=== PATIENT | female | born 1950 | race Caucasian/White ===

== ENCOUNTER 2017-09-18 12:27 | Inpatient (IN) ==
--- NOTE | 2017-09-18 12:40 | Emergency Department Note ---
Disposition Clinical Impression: Chest pain, NSTEMI (non-ST elevated myocardial infarction) Disposition: Admitted As Inpatient Condition: Fair Referrals: NONE,PCP [Primary Care Provider] - Bina Song [Family Provider] - Forms: ED Satisfaction Letter Time of Disposition: 13:35 Chest Pain HPI - General Chief Complaint: ED Chest Pain Time Seen by Provider: 09/18/17 12:34 Source: patient, EMS Mode of arrival: EMS Limitations: no limitations Vital Signs Reviewed: Yes Nursing Notes Reviewed: Yes - History of Present Illness HPI Narrative: Patient presents to the ED via EMS and was seen and evaluated upon arrival, returning with the chief complaint of chest pain. Chest pain workup this morning at 5 AM, midsternal, radiating through to her back and down her left arm. States it felt like her chest was caving in. She became nauseated, diaphoretic and had one episode of vomiting. Went to urgent care and was told to come here. States that her pain has been completely gone after full dose aspirin and nitroglycerin. Reports no previous history of coronary artery disease, but states she has not seen a physician in 40 years. She has no other known medical problems. No pain or swelling in her legs. No history of PE, DVT or malignancy. She states she just feels tired now. No fever, chills, abdominal pain, diarrhea, pain or swelling in her legs or rash. - Related Data Home Medications Medication Instructions Recorded Confirmed Calcium Carbonate [Calcium] 500 mg PO DAILY 09/18/17 09/18/17 DiphenhydraMINE [Benadryl] 25 mg PO Q6HR PRN 09/18/17 09/18/17 [place]-3/Dha/Epa/Fish Oil [Fish Oil 1 tab PO DAILY 09/18/17 09/18/17 1,000 mg Softgel] Ranitidine HCl [Zantac 75] 75 mg PO DAILY 09/18/17 09/18/17 Allergies Allergy/AdvReac Type Severity Reaction Status Date / Time No Known Allergies Allergy Verified 09/18/17 13:21 Review of Systems: As reviewed in the HPI. All other systems reviewed are negative or normal. Chest Pain PMH - Social History Smoking Status: Current every day smoker Alcohol use: Reports: none Physical Exam - General Limitations: no limitations General appearance: alert, in no apparent distress - Chest Chest inspection: Present: normal inspection, symmetric chest wall rise - Respiratory Respiratory exam: Present: normal lung sounds bilaterally - Cardiovascular Cardiovascular exam: Present: regular rate, normal rhythm, normal heart sounds - Abdominal Exam Abdominal exam: Present: soft, Non-Tender. Absent: tenderness, distention, guarding, rebound, rigidity - Extremities Exam Extremities exam: Present: normal inspection, full ROM. Absent: tenderness, pedal edema Course Course Narrative: Patient presenting with chest pain. Certainly concerning for heart pathology. We will get labs, EKG, chest x-ray and admit. - Consultations Consultation #1: Spoke with the meter setter, Dr. Alicia. States that he will come down and evaluate the patient. She does not meet STEMI criteria. This time that we do feel that she will need heart catheterization in the near future , based on her story. Time: 12:53 Consultation #2: patient with elevated troponin and is going to optical laboratory technician for suspected impending inferior [place]. Time: 14:04 Vital Signs Temperature 97.9 F 09/18/17 12:50 Pulse Rate 91 09/18/17 12:50 Respiratory Rate 18 09/18/17 12:50 Blood Pressure 141/67 09/18/17 12:50 O2 Sat by Pulse Oximetry 97 09/18/17 12:50 Temperature 97.9 F 09/18/17 12:50 Pulse Rate 74 09/18/17 13:00 Respiratory Rate 20 09/18/17 13:00 Blood Pressure 141/78 09/18/17 13:00 O2 Sat by Pulse Oximetry 99 09/18/17 13:03 Oxygen Delivery Oxygen Delivery Room Air Chest Pain - Medical Records Medical records reviewed: Yes I reviewed the patient's medical records. - Lab Data Lab results reviewed: Yes I reviewed the patient's lab results. Result diagrams: 09/18/17 13:11 09/18/17 13:11 Lab Results 09/18/17 09/18/17 09/18/17 Range/Units 12:57 13:11 13:11 WBC 11.3 H (4.3-11.1) K/mcL RBC 4.73 (3.82-4.97) M/mcL Hgb 13.1 (11.5-15.4) g/dL Hct 39.7 (35.3-44.9) % MCV 83.9 (83.0-100.0) fL MCH 27.7 L (28.0-33.3) pg MCHC 33.0 (31.6-35.5) g/dL RDW 13.0 (11.5-14.5) % Plt Count 245 (140-400) K/mcL MPV 9.7 (9.4-12.4) fL Immature Gran % 0.4 (0-4) % Seg Neutrophils % 87.2 % Lymphocytes % 10.3 % Monocytes % 2.0 % Eosinophils % 0.0 % Basophils % 0.1 % Neutrophils # 9.8 H (1.6-8.9) K/mcL Lymphocytes # 1.2 (0.6-4.6) K/mcL Monocytes # 0.2 (0.0-1.3) K/mcL Eosinophils # 0.0 (0.0-0.6) K/mcL Basophils # 0.0 (0.0-0.2) K/mcL PT (9.4-12.1) Seconds INR APTT (26.0-36.0) Seconds Sodium 139 (136-145) mEq/L Potassium 4.1 (3.5-5.1) mEq/L Chloride 110 H (98-107) mEq/L Carbon Dioxide 22 L (23-29) mEq/L BUN 14 (8-23) mg/dL Creatinine 0.58 L (0.60-1.20) mg/dL Est GFR ( Amer) > 60 (> 60) Est GFR (Non-Af Amer) > 60 (> 60) BUN/Creatinine Ratio 24 (6-26) Glucose 221 H (70-105) mg/dL Calculated Osmolality 295 (280-300) Calcium 9.3 (8.6-10.3) mg/dL Troponin I 7.75 H* (< 0.04) ng/mL Urine Color Yellow (Yellow) Urine Clarity Clear (Clear) Urine pH 6.0 (5.0-8.0) pH Units Ur Specific [place] > 1.030 H (1.010-1.025) Urine Protein Negative (Neg-Trace) mg/dL Urine Glucose (UA) >=1000 H (Normal) mg/dL Urine Ketones 15 H (Negative) mg/dL Urine Blood Negative (Negative) Urine Nitrite Negative (Negative) Urine Bilirubin Negative (Negative) Urine Urobilinogen Normal (Normal) mg/dL Ur Leukocyte Esterase Negative (Negative) Ur Culture Indicated? NO (NO) 09/18/17 Range/Units 13:11 WBC (4.3-11.1) K/mcL RBC (3.82-4.97) M/mcL Hgb (11.5-15.4) g/dL Hct (35.3-44.9) % MCV (83.0-100.0) fL MCH (28.0-33.3) pg MCHC (31.6-35.5) g/dL RDW (11.5-14.5) % Plt Count (140-400) K/mcL MPV (9.4-12.4) fL Immature Gran % (0-4) % Seg Neutrophils % % Lymphocytes % % Monocytes % % Eosinophils % % Basophils % % Neutrophils # (1.6-8.9) K/mcL Lymphocytes # (0.6-4.6) K/mcL Monocytes # (0.0-1.3) K/mcL Eosinophils # (0.0-0.6) K/mcL Basophils # (0.0-0.2) K/mcL PT 11.2 (9.4-12.1) Seconds INR 1.0 APTT 28.0 (26.0-36.0) Seconds Sodium (136-145) mEq/L Potassium (3.5-5.1) mEq/L Chloride (98-107) mEq/L Carbon Dioxide (23-29) mEq/L BUN (8-23) mg/dL Creatinine (0.60-1.20) mg/dL Est GFR ( Amer) (> 60) Est GFR (Non-Af Amer) (> 60) BUN/Creatinine Ratio (6-26) Glucose (70-105) mg/dL Calculated Osmolality (280-300) Calcium (8.6-10.3) mg/dL Troponin I (< 0.04) ng/mL Urine Color (Yellow) Urine Clarity (Clear) Urine pH (5.0-8.0) pH Units Ur Specific [place] (1.010-1.025) Urine Protein (Neg-Trace) mg/dL Urine Glucose (UA) (Normal) mg/dL Urine Ketones (Negative) mg/dL Urine Blood (Negative) Urine Nitrite (Negative) Urine Bilirubin (Negative) Urine Urobilinogen (Normal) mg/dL Ur Leukocyte Esterase (Negative) Ur Culture Indicated? (NO) - Radiology Data Radiology results reviewed: Yes I reviewed the patient's radiology results. - EKG Data EKG attestation: Yes I reviewed and interpreted this EKG. EKG results narrative: EKG shows sinus rhythm with occasional PVC, rate 91, OH interval 122, QRS 93, QTC 414, normal axis, ST T wave changes inferiorly that are non-diagnostic, but concerning for inferior ischemia. Will repeat EKG if pain changes. Heart Score - Score History: Highly Suspicious EKG: Non Specific repolarisation Disturbance Age: Greater than 65 Risk Factors: No risk factors known Troponin: Less than normal limit HEART Score Total: 5
[2017-09-18 13:09] LABS: Bilirubin,Urine Negative (Negative); Blood,Urine Negative (Negative); Clarity,Urine Clear (Clear); Color,Urine Yellow (Yellow); Glucose,Urine (UA) >=1000 mg/dL (Normal); Ketones,Urine 15 mg/dL (Negative); Leukocyte Esterase,Urine Negative (Negative); Nitrite,Urine Negative (Negative); Protein,Urine Negative (Neg-Trace); Specific Gravity,Urine > 1.030 (1.010-1.025); Urobilinogen,Urine Normal (Normal)
--- NOTE | 2017-09-18 13:09 | Emergency Department Note ---
Disposition Clinical Impression: NSTEMI (non-ST elevated myocardial infarction) Chest pain Qualifiers: Chest pain type: precordial pain Qualified Code(s): R07.2 - Precordial pain Disposition: Admitted As Inpatient Condition: Fair General Adult HPI - General Chief complaint: ED Chest Pain Stated complaint: chest pain/NV/diaphoresis Time Seen by Provider: 09/18/17 12:34 Source: patient, EMS Mode of arrival: EMS Limitations: no limitations - History of Present Illness HPI Narrative: 67-year-old female presents the ED because of chest pain. She will 5 AM today with sudden onset of substernal chest pain radiating into her back with heaviness in both arms. This was followed by period of diaphoresis and generalized weakness and vomiting. She subsequently presented to urgent care and was sent here for further evaluation due to some subtle EKG changes. Denies any recent exertional provocation of symptoms. No prior history of the same pain. Denies any past medical history. Family history positive for coronary disease in her father had his first event was when he was in his 70s. Onset (ago): hour(s) (6 hours ago) Pain Severity: moderate Pain Scale: 0 Consistency: Improving Improves with: nothing Worsens with: nothing Treatments Prior to Arrival: Aspirin, other (nitroglycerin) - Related Data Home Medications Medication Instructions Recorded Confirmed Calcium Carbonate [Calcium] 500 mg PO DAILY 09/18/17 09/18/17 DiphenhydraMINE [Benadryl] 25 mg PO Q6HR PRN 09/18/17 09/18/17 [place]-3/Dha/Epa/Fish Oil [Fish Oil 1 tab PO DAILY 09/18/17 09/18/17 1,000 mg Softgel] Ranitidine HCl [Zantac 75] 75 mg PO DAILY 09/18/17 09/18/17 Allergies Allergy/AdvReac Type Severity Reaction Status Date / Time No Known Allergies Allergy Verified 09/18/17 13:21 Constitutional: Reports: weakness. Denies: fever, chills Respiratory: Reports: dyspnea Gastrointestinal: Reports: nausea, vomiting. Denies: abdominal pain Past Medical History - Past Medical History Attestation: Yes The following information was validated with the patient. Medical history: Reports: no medical history Psychiatric history: Reports: no psych history - Social History Smoking Status: Current every day smoker Smokeless Tobacco Status: No Alcohol use: Reports: none Drug use: Reports: none Physical Exam - General Limitations: no limitations General appearance: alert, in no apparent distress - Head Head exam: atraumatic - Eye Eye exam: Present: normal appearance - ENT ENT exam: normal exam, normal oropharynx - Neck Neck exam: Absent: normal inspection, trachea midline - Chest Chest inspection: Present: normal inspection - Respiratory Respiratory exam: Present: normal lung sounds bilaterally. Absent: respiratory distress - Cardiovascular Cardiovascular exam: Present: normal rhythm - Abdominal Exam Abdominal exam: Present: Non-Tender, tenderness - Expanded Lower Extremity Exam Lower leg exam: Absent: tenderness, swelling Neurovascular/Tendon exam: Present: normal capillary refill - Back Exam Back exam: Present: normal inspection. Absent: CVA tenderness (R), CVA tenderness (L) - Neurological Exam Neurological exam: Present: alert, oriented X3 - Psychiatric Psychiatric exam: Present: normal affect - Skin Skin exam: Present: warm, dry Course Course Narrative: Patient's clinical picture is very suspicious for acute coronary syndrome. EKGs are also borderline without criteria for ST elevation [place] but suspect for evolving infarct. Concern is mostly over her inferior wall with stuttering changes involving the inferior leads as well as reciprocal changes in leads 1 and aVL. We have discussed with Dr. Alicia who is in the ED seeing the patient and will take her to the [facility] Attendant once available. The high probability of a clinically significant, sudden or life threatening deterioration of the [cardiovascular] system(s) required my full and direct attention, intervention and personal management. The aggregate critical care time was [32] minutes. This time is in addition to time spent performing reported procedures but includes the following: [x] Data Review and interpretation [x] Patient assessment and monitoring of vital signs [x] Documentation [x] Medication orders and management Vital Signs Temperature 97.9 F 09/18/17 12:50 Pulse Rate 91 09/18/17 12:50 Respiratory Rate 18 09/18/17 12:50 Blood Pressure 141/67 09/18/17 12:50 O2 Sat by Pulse Oximetry 97 09/18/17 12:50 Temperature 98.1 F 09/18/17 19:04 Pulse Rate 96 09/18/17 19:04 Respiratory Rate 20 09/18/17 19:04 Blood Pressure 138/72 09/18/17 19:04 O2 Sat by Pulse Oximetry 97 09/18/17 19:04 Oxygen Delivery Oxygen Delivery Room Air Medical Decision Making - Lab Data Result diagrams: 09/18/17 13:11 09/18/17 13:11 Lab Results 09/18/17 09/18/17 09/18/17 Range/Units 12:57 13:11 13:11 WBC 11.3 H (4.3-11.1) K/mcL RBC 4.73 (3.82-4.97) M/mcL Hgb 13.1 (11.5-15.4) g/dL Hct 39.7 (35.3-44.9) % MCV 83.9 (83.0-100.0) fL MCH 27.7 L (28.0-33.3) pg MCHC 33.0 (31.6-35.5) g/dL RDW 13.0 (11.5-14.5) % Plt Count 245 (140-400) K/mcL MPV 9.7 (9.4-12.4) fL Immature Gran % 0.4 (0-4) % Seg Neutrophils % 87.2 % Lymphocytes % 10.3 % Monocytes % 2.0 % Eosinophils % 0.0 % Basophils % 0.1 % Neutrophils # 9.8 H (1.6-8.9) K/mcL Lymphocytes # 1.2 (0.6-4.6) K/mcL Monocytes # 0.2 (0.0-1.3) K/mcL Eosinophils # 0.0 (0.0-0.6) K/mcL Basophils # 0.0 (0.0-0.2) K/mcL PT (9.4-12.1) Seconds INR APTT (26.0-36.0) Seconds Sodium 139 (136-145) mEq/L Potassium 4.1 (3.5-5.1) mEq/L Chloride 110 H (98-107) mEq/L Carbon Dioxide 22 L (23-29) mEq/L BUN 14 (8-23) mg/dL Creatinine 0.58 L (0.60-1.20) mg/dL Est GFR ( Amer) > 60 (> 60) Est GFR (Non-Af Amer) > 60 (> 60) BUN/Creatinine Ratio 24 (6-26) Glucose 221 H (70-105) mg/dL Calculated Osmolality 295 (280-300) Calcium 9.3 (8.6-10.3) mg/dL Magnesium 1.9 (1.6-2.6) mg/dL Troponin I 7.75 H* (< 0.04) ng/mL Urine Color Yellow (Yellow) Urine Clarity Clear (Clear) Urine pH 6.0 (5.0-8.0) pH Units Ur Specific [place] > 1.030 H (1.010-1.025) Urine Protein Negative (Neg-Trace) mg/dL Urine Glucose (UA) >=1000 H (Normal) mg/dL Urine Ketones 15 H (Negative) mg/dL Urine Blood Negative (Negative) Urine Nitrite Negative (Negative) Urine Bilirubin Negative (Negative) Urine Urobilinogen Normal (Normal) mg/dL Ur Leukocyte Esterase Negative (Negative) Ur Culture Indicated? NO (NO) 09/18/17 Range/Units 13:11 WBC (4.3-11.1) K/mcL RBC (3.82-4.97) M/mcL Hgb (11.5-15.4) g/dL Hct (35.3-44.9) % MCV (83.0-100.0) fL MCH (28.0-33.3) pg MCHC (31.6-35.5) g/dL RDW (11.5-14.5) % Plt Count (140-400) K/mcL MPV (9.4-12.4) fL Immature Gran % (0-4) % Seg Neutrophils % % Lymphocytes % % Monocytes % % Eosinophils % % Basophils % % Neutrophils # (1.6-8.9) K/mcL Lymphocytes # (0.6-4.6) K/mcL Monocytes # (0.0-1.3) K/mcL Eosinophils # (0.0-0.6) K/mcL Basophils # (0.0-0.2) K/mcL PT 11.2 (9.4-12.1) Seconds INR 1.0 APTT 28.0 (26.0-36.0) Seconds Sodium (136-145) mEq/L Potassium (3.5-5.1) mEq/L Chloride (98-107) mEq/L Carbon Dioxide (23-29) mEq/L BUN (8-23) mg/dL Creatinine (0.60-1.20) mg/dL Est GFR ( Amer) (> 60) Est GFR (Non-Af Amer) (> 60) BUN/Creatinine Ratio (6-26) Glucose (70-105) mg/dL Calculated Osmolality (280-300) Calcium (8.6-10.3) mg/dL Magnesium (1.6-2.6) mg/dL Troponin I (< 0.04) ng/mL Urine Color (Yellow) Urine Clarity (Clear) Urine pH (5.0-8.0) pH Units Ur Specific [place] (1.010-1.025) Urine Protein (Neg-Trace) mg/dL Urine Glucose (UA) (Normal) mg/dL Urine Ketones (Negative) mg/dL Urine Blood (Negative) Urine Nitrite (Negative) Urine Bilirubin (Negative) Urine Urobilinogen (Normal) mg/dL Ur Leukocyte Esterase (Negative) Ur Culture Indicated? (NO) - EKG Data EKG #1 EKG attestation: Yes I reviewed and interpreted this EKG. EKG results narrative: Sinus rhythm with a rate of 91 and occasional PVCs. Electrical indices within normal limits. [place] is normal. There are very subtle changes involving the inferior wall with less than a millimeter of elevation in lead [address] depressions involving leads 1 and aVL suspicious for early inferior wall injury. Attestation Statement - Attestation Attestation: I examined this patient and my medical decision-making was reviewed with the Resident Physician. I agree with the documented findings, disposition and treatment plan as described except to the extent set forth below.
[2017-09-18] MEDS ORDERED: *HR* Heparin 5,000 UNIT/ML VIAL IVP ONE (13:10)
[2017-09-18] MEDS ORDERED: Heparin 25,000 UNIT/500 ML D5W 25,000 UNIT/500 ML BAG IVC SCH (13:15)
[2017-09-18 13:21] LABS: Basophils % 0.1 %; Hematocrit 39.7 % (35.3-44.9); Hemoglobin 13.1 g/dL (11.5-15.4); Immature Granulocytes % 0.4 % (0-4); Lymphocytes # 1.2 K/mcL (0.6-4.6); Lymphocytes % 10.3 %; Mean Corpuscular Hemoglobin 27.7 pg (28.0-33.3); Mean Corpuscular Volume 83.9 fL (83.0-100.0); Mean Platelet Volume 9.7 fL (9.4-12.4); Monocytes # 0.2 K/mcL (0.0-1.3); Neutrophils # 9.8 K/mcL (1.6-8.9); Platelet Count 245 K/mcL (140-400); Red Blood Count 4.73 M/mcL (3.82-4.97); Segmented Neutrophils % 87.2 %
[2017-09-18 13:45] LABS: BUN/Creatinine Ratio 24 (6-26); Blood Urea Nitrogen 14 mg/dL (8-23); Calcium 9.3 mg/dL (8.6-10.3); Carbon Dioxide 22 mEq/L (23-29); Chloride 110 mEq/L (98-107); Glucose 221 mg/dL (70-105); Osmolality,Calculated 295 (280-300); Potassium 4.1 mEq/L (3.5-5.1); Sodium 139 mEq/L (136-145); eGFR For African Americans > 60 (> 60); eGFR For Non-African Americans > 60 (> 60)
[2017-09-18 13:47] LABS: Troponin I 7.75 ng/mL (< 0.04)
[2017-09-18 13:51] LABS: Prothrombin Time 11.2 Seconds (9.4-12.1)
--- NOTE | 2017-09-18 13:52 | Pre-Sedation Evaluation ---
Pre-sedation evaluation - Pre-sedation checklist Date of procedure: 09/18/17 Procedure: LHC Recent Vitals: Last Vital Signs Temp 97.9 F 09/18/17 12:50 Pulse 74 09/18/17 13:00 Resp 20 09/18/17 13:00 BP 141/78 09/18/17 13:00 Pulse Ox 99 09/18/17 13:03 ASA Classification *see protocol: CLASS II-Mild systemic disease
[2017-09-18] MEDS ORDERED: 0.9 % Sodium Chloride 1,000 ML ONE (13:54)
[2017-09-18] MEDS ORDERED: *HR* Heparin 10,000 UNIT/10 ML VIAL ONE (13:54)
[2017-09-18] MEDS ORDERED: Heparin 1,000 UNITS/500 mL 500 ML ONE (13:54)
[2017-09-18] MEDS ORDERED: ISOVUE-370 200 ML INFUS..BTL IV ONE ×2 (13:55→14:24)
[2017-09-18] MEDS ORDERED: Nitroglycerin 1,000 MCG/10 ML VIAL IV ONE (13:55)
--- NOTE | 2017-09-18 13:57 | Cardiology Consult Note ---
Date of Encounter: 09/18/17 Time of Encounter: 13:55 Assessment and Plan (1) NSTEMI (non-ST elevated myocardial infarction) Current Visit: Yes Status: Acute Elevated troponins improved chest pain but continues to describe 1/10 chest pain. Likely Inferior impending stuttering Inferior ST ischemia, R/B/A d/w patient and she agrees to proceed. Discussion w patient/family: The assessment and plan as outlined above was discussed with the patient and/or family members who expressed understanding and agreement. All questions were answered. Thank you for involving us in the care of your patient. Please call with any questions. History of Present Illness Consult date: 09/18/17 Consult reason: Chest Pain Chief complaint: Chest pain started at 5am History of present illness: Ms. Chavez is a 67 year old female with no significant hx has not seen a doctor for the last 40 years presents with chest pain epigastric, non radiating unrlenting waxing and waning currently at a 1/10. EKG shows stuttering Inferior ST changes suggestive of ischemia. Urgent Left heart cath discussed with pt including R/B/A and she agrees to proceed with an urgent LHC. Initial troponin noted to be 11. Past Med Surg Social Fam HX - Past Medical History Medical history: no medical history Psychiatric history: no psych history - Social History Smoking Status: Current every day smoker Smokeless Tobacco Status: No Alcohol use: none Drug use: none Medications and Allergies Calcium Carbonate [Calcium] 500 mg PO DAILY 09/18/17 [History] DiphenhydraMINE [Benadryl] 25 mg PO Q6HR PRN 09/18/17 [History] [place]-3/Dha/Epa/Fish Oil [Fish Oil 1,000 mg Softgel] 1 tab PO DAILY 09/18/17 [ History] Ranitidine HCl [Zantac 75] 75 mg PO DAILY 09/18/17 [History] 3 Allergy/AdvReac Type Severity Reaction Status Date / Time No Known Allergies Allergy Verified 09/18/17 13:21 All Systems Review: The remainder of the systems were reviewed and are negative Physical Examination Vital Signs, Last 4 Hours Temp Pulse Resp BP Pulse Ox 09/18/17 13:03 99 09/18/17 13:00 74 20 141/78 98 09/18/17 12:50 97.9 F 91 18 141/67 97 General: Conversant, No Apparent Distress HEENT: Atraumatic, Normocephaly, Mucus Membranes Moist Neck: No JVD, Normal carotid pulses Cardiac: Reg Rate and Rhythm, Normal S1 and S2, No Murmur Lungs: Normal Breath Sounds, No Wheeze, Rales, Rhonchi Neuro: Alert and responsive, No focal deficits noted Abdomen: Soft, Non-Tender Skin: No rashes noted on visualized skin Musculoskeletal: No Chest Wall Tenderness Extremities: No Clubbing, No Cyanosis, No Edema, Normal Pulses Results 09/18/17 13:11 09/18/17 13:11 Lab Results 09/18/17 09/18/17 09/18/17 13:11 13:11 13:11 WBC 11.3 H Hgb 13.1 Hct 39.7 Plt Count 245 INR 1.0 APTT 28.0 Sodium 139 Potassium 4.1 Chloride 110 H Carbon Dioxide 22 L BUN 14 Creatinine 0.58 L Glucose 221 H Calcium 9.3 Troponin I 7.75 H* Consult Discharge Plan - Plan Referrals: NONE,PCP [Primary Care Provider] - Bina Song [Family Provider] -
[2017-09-18] MEDS ORDERED: *HR* FentaNYL (PF) 100 MCG/2 ML VIAL ONE (13:59)
[2017-09-18] MEDS ORDERED: *HR* Midazolam HCl 2 MG/2 ML VIAL ONE (13:59)
[2017-09-18] MEDS ORDERED: Tirofiban 12.5 MG/250ML 12.5 MG/250 ML BAG ONE (14:29)
[2017-09-18] MEDS ORDERED: Tirofiban 12.5 MG/250ML 12.5 MG/250 ML BAG IVC SCH (15:15)
--- NOTE | 2017-09-18 15:18 | Invasive Diagnostic Lab Proc ---
Name: Lashay Chavez Date of Study: 09/18/2017 Date: 1950 Ht: 64.2in Medical Record#: [id number] Age: 67 Wt: 160.94lb Gender: Female BSA: 1.79 Order #: [id number] BMI: 27.48 Physicians Procedure Physician: Blade Alicia MD Referring MD: Referring MD: Staff Name Position Time In Bradley Del Toro RT (R) Monitor 01:32 PM MonicaLashaun villa RT (R) Scrub 01:32 PM Fátima Ramirez RN Plumber Gasfitter 01:32 PM Indications Indication Non-Stemi Unstable Angina Procedures Performed Procedure L HRT ARTERY/VENTRICLE ANGIO PRQ CARD BHAVANA STENT W/ANGIO 1 VSL Pre-Procedure Checklist Informed consent is complete signed and on chart. H&P is on chart. ID band is on and ID verified with patient. Patient NPO for procedure The procedure was described for the patient and questions were answered. Blood Pressure: 141/78 ECG is on chart. Rhythm: NSR Plan of Care Patient will tolerate the procedure without complications. Adequate level of comfort will be maintained. Hemodynamics will remain stable Patient will recover from procedure without complications. Respiratory function will be maintained. Cardiac rhythm will remain stable. Patient temperature will be maintained. Patient and/or family have verbalized understanding of the procedure. Patient Education Chief Complaint/Reason for Test: Cardiac Cath Developmental Category: Geriatric (65+ years) Developmentally Appropriate for Age: Yes Learning Barriers: None Education Needs: Procedure Education Method: Verbal Information Taught: Cardiac Cath Educational Evaluation: Able to repeat information Intravenous Access Time IV Size Location DC'd Fluid/Drip Rate Units RN 01:51 PM 18g 1 06/04" Patent On Arrival Rt Antecubital 0.9NaCl 25 ml/hr Fátima Ramirez RN Allergies No Known Allergies Vital Signs Time BP (mmHg) HR (bpm) O2 Sat. RR (bpm) LOC 01:51 PM 141 / 78 74 99 % 5 = Fully awake and oriented or at pre-proc level 01:51 PM / % 5 = Fully awake and oriented or at pre-proc level 01:51 PM / % 5 = Fully awake and oriented or at pre-proc level 02:07 PM / % 4 = Oriented but drowsy 02:22 PM / % 4 = Oriented but drowsy 02:37 PM / % 5 = Fully awake and oriented or at pre-proc level 01:58 PM 159 / 84 98 100 % 02:03 PM 164 / 83 98 100 % 19 02:08 PM 168 / 80 100 99 % 19 02:13 PM 172 / 90 113 99 % 19 02:18 PM 176 / 86 104 99 % 25 02:23 PM 164 / 86 96 100 % 19 02:28 PM 171 / 97 108 98 % 21 02:33 PM 166 / 76 91 100 % 18 02:38 PM 167 / 82 105 100 % 23 02:43 PM 166 / 107 101 99 % 27 02:49 PM 159 / 95 86 98 % 39 02:53 PM 175 / 96 90 99 % 14 Procedural Medications Time Medication Dose Units Method Given By 01:58 PM Oxygen 2 L/min nasal cannula Fátima Ramirez RN 01:59 PM Versed 1 mg Intravenous JamesFátima paige RN 02:00 PM Fentanyl 50 mcg Intravenous Fátima Ramirez RN 02:07 PM Lidocaine 2% 10 ml Subcutaneous Blade Alicia MD 02:30 PM Heparin 1000 units Intravenous JamesFátima paige RN 02:31 PM Aggrastat Bolus: 37.5 ml Intravenous JamesFátima paige RN 02:31 PM Aggrastat 12.5mg/250ml 13.5 ml Intravenous ErnstvilleFátima paige RN 02:41 PM Nitroglycerin 100 mcg Intracoronary Damian Alicia MD 02:46 PM Nitroglycerin 150 mcg Intracoronary BeussDamian darnell MD ASA Classification: CLASS III- Severe systemic disease (i.e. prior AMI, diabetes with vascular complications, morbid obesity) Gaviota Score Preprocedure Postprocedure Activity 2- Moves 4 extremities sustained head lift Activity 2- Moves 4 extremities sustained head lift Circulation 2- SBP +/= 20 points of pre-anesthetic level Circulation 2- SBP +/= 20 points of pre-anesthetic level Consciousness 2- Awake and alert oriented x 3 Consciousness 2- Awake and alert oriented x 3 O2 Saturation 2- Able to maintain O2 satruation of 92% on room air O2 Saturation 2- Able to maintain O2 satruation of 92% on room air Respiratory 2- Able to deep breathe and cough well Respiratory 2- Able to deep breathe and cough well Total Score 10 Total Score 10 Contrast Agent: Isovue Diagnostic Contrast: 163 ml Total Contrast: 163 ml Fluoro Dose: 917 mGy Activated Clotting Time Time Seconds to Clot 02:29 PM 192 Procedure Log Time Note Enter By 01:32 PM Patient charges- Angio tray pack, Navilyst 3mm J, Pulse Oximetry and ACIST tubing and transducer :32 PM Bradley Del Toro RT (R) Position: Monitor Time in: 13:32 :32 PM Lashaun Anderson RT (R) Position: Scrub Time in: :32 :32 PM Fátima Ramirez RN Position: Plumber Gasfitter Time in: :32 :51 PM Pt arrived to laboratory specialist 1 at 13:51 :51 PM Case Delayed No :51 PM Time: 13:51 Patient comfortable and pain free: Yes :51 PM Time: 13:51LOC: 5 = Fully awake and oriented or at pre-proc level bw 01:55 PM Physician arrived 13:55 01:55 PM Meet and greet completed :55 PM Sign in performed according to hospital policy. 01:55 PM CathStat 01:55 PM Procedure start 13:55 :55 PM ASA Class CLASS III- Severe systemic disease (i.e. prior AMI, diabetes with vascular complications, morbid obesity) 01:57 PM Vitals capture started with the following parameters, Patient=Adult, Interval=5 min, Initial Ulwnfubd=204 mmHg, Deflation Rate=3 mmHg, Cuff placed on Right Arm 01:58 PM Hair removed from procedure site in procedure lab using clippers. Bilateral groin prepped with Chloraprep by Lashaun Anderson RT (R), then patient was draped. Skin intact. :58 PM Time: 13:58 Oxygen on at 2 L/min per nasal cannula by Fátima Ramirez RN :58 PM HR=98 bpm, PPQR=889/84 mmhg, IwZ6=374.0 % 01:59 PM Time: 13:59 Versed 1 mg Intravenous Given by Fátima Ramirez RN 02:00 PM Time: 14:00 Fentanyl 50 mcg Intravenous Given by Fátima Ramirez RN 02:00 PM Recorded ECG: PT=659 Condition=Condition 1 02:01 PM Clinical Presentation: Non-STEMI 02:03 PM HR=98 bpm, RNFC=844/83 mmhg, SiY5=086.0 %, Resp=19 B/min 02:05 PM Recorded ECG: HR=92 Condition=Condition 1 02:05 PM Pressure channel 1 zeroed. 02:06 PM Time out performed according to hospital policy 02:07 PM Time: 13:51LOC: 5 = Fully awake and oriented or at pre-proc level 02:07 PM Time: 13:51 Patient comfortable and pain free: Yes 02:08 PM Time: 14:07 10 ml Lidocaine 2% to right groin Subcutaneous Given by Blade Alicia MD 02:08 PM Micro-Introducer Kit utilized for sheath placement 02:08 PM hand injected right femoral angio 5 cc contrast. 02:08 PM OB=055 bpm, CWNN=098/80 mmhg, SpO2=99.0 %, Resp=19 B/min 02:09 PM Access obtained by percutaneous puncture. 6Fr 10cm Cordis Maryanne sheath placed in right Femoral artery. [id number] 02:09 PM 0.035 145cm Navilyst 3mmJ wire [id number] 02:09 PM 5Fr FL 4 catheter inserted over the wire [facility] 02:10 PM Recorded Pressure: Ao, AM=169, Condition=Condition 1 (Aorta) Ao 174/68/111 02:11 PM LCA angiography performed in multiple views. 02:12 PM Catheter removed 02:12 PM 5Fr FR 4 catheter inserted over the wire [facility] 02:13 PM RCA angiography performed in multiple views. 02:13 PM UT=664 bpm, DJMV=679/90 mmhg, SpO2=99.0 %, Resp=19 B/min 02:14 PM Recorded Pressure: Ao, HR=99, Condition=Condition 1 (Aorta) Ao 200/86/150 02:14 PM Physician consulting with Dr. Luciano 02:14 PM Catheter removed 02:15 PM 5Fr Pigtail catheter inserted over the wire [facility] 02:15 PM Pressure channel 1 zeroed. 02:15 PM Recorded Pressure: LV, DX=805, Condition=Condition 1 (Left Ventricle) LV 123/19/27 02:16 PM Recorded Pressure: LV, PB=767, Condition=Condition 1 (Left Ventricle) LV 175/59/96 02:16 PM Pressure channel 1 zeroed. 02:16 PM Recorded Pressure: LV, EP=625, Condition=Condition 1 (Left Ventricle) LV 155/28/49 02:16 PM Catheter selectively placed in left ventricle [email or web address] 02:16 PM Bolus angiogram of left Ventricle complete: 10 ml/sec for a total of 20 mls [email or web address] 02:18 PM Recorded Pressure: LV, Ao, QK=035, Condition=Condition 1 (Left Ventricle) LV 160/54/63, (Aorta) Ao 157/64/110 02:18 PM Physician reviewing films [email or web address] 02:18 PM Catheter removed [email or web address] 02:18 PM YB=706 bpm, QBWA=783/86 mmhg, SpO2=99.0 %, Resp=25 B/min 02:19 PM Coronary Dominance: right [email or web address] 02:19 PM Lesion found in Mid LAD. Pre Stenosis: 70 Pre GINGER Flow: [email or web address] 02:19 PM Mid/Distal Left Anterior Descending Coronary Artery and diagonal branches with 70% stenosis. If graft is supplying this area, 0 % stenosis [email or web address] 02:20 PM Lesion found in Proximal Circumflex. Pre Stenosis: 80 Pre GINGER Flow: [email or web address] 02:20 PM Circumflex, Obtuse Marginal, Left Posterior Descending, and Left Posterolateral Coronary Arteries with 80 % stenosis. If graft is supplying this area, 0 % stenosis [email or web address] 02:20 PM Lesion found in Proximal RCA. Pre Stenosis: 60 Pre GINGER Flow: [email or web address] 02:20 PM Lesion found in Mid RCA. Pre Stenosis: 90 Pre GINGER Flow: [email or web address] 02:20 PM Right Coronary, Right Posterior Descending Arteries with Right Posterolateral and Acute Marginal branches with 90 % stenosis. If graft is supplying this area, 0 % stenosis [email or web address] 02:[address] Alicia consulting with Dr. Luciano in Lab 1. [email or web address] 02:22 PM Time: 14:07 Patient comfortable and pain free: Yes [email or web address] 02:22 PM Time: 14:07LOC: 4 = Oriented but drowsy [email or web address] 02:23 PM HR=96 bpm, ZVAB=857/86 mmhg, DwU4=363.0 %, Resp=19 B/min 02:25 PM Inflation device was opened. [email or web address] 02:28 PM 6Fr JR 4 [place] Bright-Tip guide catheter was used to cannulate the PCI vessel successfully. reused? No [email or web address] 02:28 PM FN=417 bpm, HXDA=186/97 mmhg, SpO2=98.0 %, Resp=21 B/min 02:28 PM .014 BMW 300cm guide wire across target lesion- successful. reused? No 02:29 PM 2.0 mm x 12 mm Emerge Monorail balloon across target lesion- successful. reused? No [email or web address] 02:29 PM At 14:29 the ACT was 192 seconds. [email or web address] 02:30 PM Time: 14:30 Heparin 1000 units Intravenous Given by Fátima Ramirez RN 02:31 PM Time: 14:31 Aggrastat Bolus: 37.5 ml Intravenous Given by Fátima Ramirez RN Rice pump 02:31 PM Time: 14:31 Aggrastat 12.5mg/250ml 13.5 ml Intravenous Given by Fátima Ramirez RN Rice pump ilson 02:33 PM Balloon inflated @ 6 basil for 4 seconds [email or web address] 02:33 PM Balloon inflated @ 6 basil for 4 seconds [email or web address] 02:33 PM HR=91 bpm, HJLJ=088/76 mmhg, VvD3=672.0 %, Resp=18 B/min 02:34 PM Balloon catheter removed intact. [email or web address] 02:35 PM Recorded Pressure: Ao, HR=85, Condition=Condition 1 (Aorta) Ao 148/83/111 02:35 PM .014 BMW Weare 190cm guide wire across target lesion- successful. reused? No 02:36 PM 3.5mm x 38mm Synergy drug-eluting stent across target lesion- successful Lot #[id number] 02:37 PM Time: 14:22 Patient comfortable and pain free: Yes 2 02:37 PM Time: 14:22LOC: 4 = Oriented but drowsy [email or web address] 02:38 PM US=299 bpm, IMHA=001/82 mmhg, BcA7=240.0 %, Resp=23 B/min 02:39 PM wire pulled back. [email or web address] 02:39 PM Stent deployed @ 16 basil for 32 seconds [email or web address] 02:40 PM Stent delivery system removed intact. [email or web address] 02:41 PM Time: 14:41 Nitroglycerin 100 mcg Intracoronary Given by Damian Alicia MD ilson 02:43 PM 3.5 mm x 20mm NC Trek Rx balloon across target lesion- successful. reused? No [email or web address] 02:43 PM NG=582 bpm, ZXAV=950/107 mmhg, SpO2=99.0 %, Resp=27 B/min 02:44 PM Balloon inflated @ 16 basil for 8 seconds [email or web address] 02:45 PM Balloon inflated @ 18 basil for 8 seconds [email or web address] 02:46 PM Balloon catheter removed intact. [email or web address] 02:46 PM Guide wire removed intact. [email or web address] 02:46 PM Guide wire removed intact. [email or web address] 02:46 PM Time: 14:46 Nitroglycerin 150 mcg Intracoronary Given by Damian Alicia MD [email or web address] 02:47 PM Lesion found in Distal RCA. Pre Stenosis: 50 Pre GINGER Flow: [email or web address] 02:48 PM Guide catheter removed intact. [email or web address] 02:49 PM HR=86 bpm, RZGW=377/95 mmhg, SpO2=98.0 %, Resp=39 B/min 02:50 PM Arterial sheath pulled, Angio-seal closure device used and was Successful S/N. [email or web address] 02:51 PM Procedure completed at 14:50 [email or web address] 02:51 PM Sign out completed: Radiation Dose 916.74 mGy Fluoro Time: 10.0 Isovue 370 - 200ml contrast 163 ml given by Blade Alicia MD. Complications: NoneCardiac Rehab Consult needed: YesConfirmed administered medications: No 02:51 PM Isovue 370 - 200ml,1 Bottle(s) used. [email or web address] 02:52 PM What is the NYHA Class? Class 3 2 02:52 PM Time: 14:37 Patient comfortable and pain free: Yes 2 02:52 PM Time: 14:37LOC: 5 = Fully awake and oriented or at pre-proc level [email or web address] 02:52 PM Estimated Blood Loss: less than 20cc [email or web address] 02:53 PM Post ECG NSR [email or web address] 02:53 PM Post Blood Pressure 159/95 [email or web address] 02:53 PM Information taught Cardiac Cath, PCI, and Angioseal [email or web address] 02:53 PM Education needs Procedure, Plan of Care, and Disease Process [email or web address] 02:53 PM Learning barriers :Sedated [email or web address] 02:53 PM Education Methods Verbal [email or web address] 02:53 PM Education evaluation Needs further instruction [email or web address] 02:53 PM HR=90 bpm, SDAC=529/96 mmhg, SpO2=99.0 %, Resp=14 B/min 02:53 PM Site status No bleeding/hematoma - Rt Groin as reported by Lashaun Anderson RT (R) at 14:53 [email or web address] 02:53 PM Opsite applied [email or web address] 02:53 PM Delay to floor No [email or web address] 02:54 PM Family placed in consult room. [email or web address] 02:54 PM Complications: None [email or web address] 02:54 PM Fluoro Time: 10 [email or web address] 02:54 PM Isovue 370 - 200ml contrast 163 ml given by . [email or web address] 02:54 PM Radiation Dose 916.74 mGy [email or web address] 02:55 PM Vitals capture stopped. 02:58 PM 14:58 Post Pulses Bilateral DP & PT 1+ [email or web address] 03:02 PM Report given to olya ELIZABETH Pt taken to E Room #20. 15:00 [email or web address] 03:06 PM patient in lab, luna aguilera holding pressure on hematoma that formed. 5cm. [email or web address] 03:08 PM Patient out of room: 15:08 [email or web address] 03:10 PM Site status Hematoma - Rt Groin as reported by Luna Lambert RN at 15:10 3-5 cm manual pressure held for 5 mins, hematoma was resolved. [email or web address] Complications Complication None None Hemodynamics Pressures Site Systolic/A Wave Diastolic/V Wave Mean AO 174 68 111 AO 200 86 150 LV 123 19 27 LV 175 59 96 LV 155 28 49 LV 160 54 63 AO 157 64 110 AO 148 83 111 Post Procedure Information Blood Pressure: 159/95 mmHg Rhythm: NSR Post procedural instructions were given Surgery consult for CABG Closure Device Time Device Success/Fail 09/18/2017 2:50:00 PM Angio-Seal VIP Successful Site Checks Time Location Status Staff Sheath In? Note 02:53 PM Rt Groin No bleeding/hematoma Lashaun Anderson RT (R) 03:10 PM Rt Groin Hematoma Luna Lambert RN 3-5 cm Pulses Time Site Pre-Procedure Post-Procedure Note 09/18/2017 1:51:00 PM Bilateral DP & PT 1+ 2:58:00 PM Bilateral DP & PT 1+ Updated by Bradley Del Toro RT (R) on 09/18/2017 3:11:04 PM Bradley Del Toro, RT electronically signed on 09/18/2017 3:11:28 PM with status of Final
[2017-09-18] MEDS ORDERED: Ondansetron 4 MG/2 ML VIAL IVP PRN (16:04)
--- NOTE | 2017-09-18 16:24 | Cardiothoracic Consult Note ---
Date of Encounter: 09/18/17 Time of Encounter: 16:21 Assessment and Plan (1) NSTEMI (non-ST elevated myocardial infarction) Current Visit: Yes Status: Acute The assessment and plan as outlined above was discussed with the patient and/or family members who expressed understanding and agreement. All questions were answered. The patient was admitted with an acute inferior wall myocardial infarction with ST changes and positive troponin. Her ventricular function was decreased on cardiac catheterization to 30-35%. She did receive a Plavix load in the emergency room. I do agree that PTCA and stenting of the right coronary artery is the best initial approach. Her right coronary artery was stented with a good result. At some point, the patient should have an echocardiogram to rule out right ventricular infarction. She is a poor candidate for emergency open heart surgery because of her evolving myocardial infarction, Plavix load and decreased ventricular function. At this point, I feel that medical management is best. After discharge, she could have a stress test in approximately 1 month. At this point, options would include open heart surgery with triple bypass or PTCA and stenting of her circumflex and LAD. - History of Present Illness History of present illness: Ms. Chavez is a 67 year old female The patient is a 67-year-old female who has not seen a doctor in over 40 years. She awoke this morning with chest pain and was seen in the emergency room with an acute inferior wall ND with inferior ST changes. Troponin was positive at 7.75. She did receive a Plavix load in the emergency room. Cardiac catheterization revealed decreased ventricular function with ejection fraction of 30-35%. She had triple-vessel disease. The culprit lesion was the right coronary artery which had a 90% lesion. This was opened with PTCA and stent with a good result. Past medical history is negative for hypertension, diabetes and hypercholesterolemia. Social history. She lives in [place]. She does smoke 1/2-1 pack of cigarettes per day. Occasionally drinks alcohol. Family history is positive for coronary artery disease. Review of systems is notable for some upset stomach at times. Past Med Surg Social Fam HX - Past Medical History Medical history: no medical history Psychiatric history: no psych history - Social History Smoking Status: Current every day smoker Smokeless Tobacco Status: No Alcohol use: none Drug use: none Medications and Allergies Calcium Carbonate [Calcium] 500 mg PO DAILY 09/18/17 [History] DiphenhydraMINE [Benadryl] 25 mg PO Q6HR PRN 09/18/17 [History] [place]-3/Dha/Epa/Fish Oil [Fish Oil 1,000 mg Softgel] 1 tab PO DAILY 09/18/17 [ History] Ranitidine HCl [Zantac 75] 75 mg PO DAILY 09/18/17 [History] 3 Allergy/AdvReac Type Severity Reaction Status Date / Time No Known Allergies Allergy Verified 09/18/17 13:21 All Systems Review: The remainder of the systems were reviewed and are negative Physical Examination Vital Signs, Last 4 Hours Temp Pulse Resp BP Pulse Ox 09/18/17 16:00 92 170/80 09/18/17 15:53 98.1 F 80 16 157/77 97 09/18/17 15:45 87 16 157/77 97 09/18/17 15:25 90 141/75 She is status post cataract surgery. She is missing most of her teeth. Neck is supple. Trachea in the midline. No thyromegaly or carotid bruits. Lungs are clear to percussion and auscultation. Heart is in a regular rate and rhythm. She is presently chest pain free. Abdomen is benign. No tenderness, rebound or guarding. Extremities without edema. No saphenous vein varicosities or strippings. Cranial nerves, motor and sensory intact. Results 09/18/17 13:11 09/18/17 13:11 Consult Discharge Plan - Plan Referrals: NONE,PCP [Primary Care Provider] - Bina Song [Family Provider] -
--- NOTE | 2017-09-18 17:20 | Electrocardiograph Report ---
[facility] Test Date: 2017-09-18 Pat Name: Lashay Chavez Department: 102 Room: 2NE20 Gender: Feller Operator: Yazmin : 1950 Requested By: [id number] Order Number: [id number] Reading MD: Francisco Gautam Measurements Intervals [place] Rate: 91 P: 37 GA: 122 QRS: 31 QRSD: 93 T: -7 QT: 365 QTc: 414 Interpretive Statements SINUS RHYTHM WITH OCCASIONAL VENTRICULAR PREMATURE COMPLEXES MINIMAL ST DEPRESSION [0.025+ mV ST DEPRESSION] INTERPRETATION BASED ON A DEFAULT AGE OF 40 YEARS Electronically Signed On 09-18-2017 17:18:47 EDT by Francisco Gautam
[2017-09-18 17:27] LABS: Magnesium 1.9 mg/dL (1.6-2.6)
[2017-09-19 02:57] LABS: Basophils % 0.1 %; Hematocrit 34.7 % (35.3-44.9); Hemoglobin 11.5 g/dL (11.5-15.4); Immature Granulocytes % 0.4 % (0-4); Lymphocytes # 2.7 K/mcL (0.6-4.6); Lymphocytes % 16.2 %; Mean Corpuscular HGB Conc 33.1 g/dL (31.6-35.5); Mean Corpuscular Hemoglobin 27.5 pg (28.0-33.3); Mean Platelet Volume 9.4 fL (9.4-12.4); Monocytes # 1.2 K/mcL (0.0-1.3); Monocytes % 7.4 %; Neutrophils # 12.6 K/mcL (1.6-8.9); Platelet Count 255 K/mcL (140-400); Red Blood Count 4.18 M/mcL (3.82-4.97); Red Cell Distribution Width 13.2 % (11.5-14.5); Segmented Neutrophils % 75.9 %
[2017-09-19 03:18] LABS: BUN/Creatinine Ratio 21 (6-26); Blood Urea Nitrogen 13 mg/dL (8-23); Calcium 9.2 mg/dL (8.6-10.3); Carbon Dioxide 24 mEq/L (23-29); Chloride 106 mEq/L (98-107); Glucose 180 mg/dL (70-105); Osmolality,Calculated 287 (280-300); Potassium 3.5 mEq/L (3.5-5.1); Sodium 136 mEq/L (136-145); eGFR For African Americans > 60 (> 60); eGFR For Non-African Americans > 60 (> 60)
[2017-09-19] MEDS: Aspirin 81 MG TAB.CHEW PO SCH (07:53)
--- NOTE | 2017-09-19 08:55 | Cardiothoracic Progress Note ---
Date of Encounter: 09/19/17 Time of Encounter: 08:51 - Assessment and plan (1) NSTEMI (non-ST elevated myocardial infarction) Current Visit: Yes Status: Acute The patient presented with an acute inferior myocardial infarction with positive enzymes. She did receive a Plavix load in the emergency room. Cardiac catheterization revealed an ejection fraction of 30-35%. The right coronary artery was opened with a PTCA and stent with a good result. She does have triple-vessel disease with disease in her circumflex and LAD. I favor allowing the patient to recuperate and repeating an echocardiogram and stress test in approximately 1 month. At this point, I will sign off. Please call if needed. - Subjective Interval history: The patient has had no further chest pain. Vital Signs, Last 4 Hours Temp Pulse Resp BP Pulse Ox 09/19/17 07:10 98.9 F 77 15 127/64 100 Weight 09/17/17 09/18/17 09/19/17 23:59 23:59 23:59 Weight 71.1 kg 69.2 kg Lungs are clear to percussion and auscultation. Heart is in a normal sinus rhythm. - Labs 09/19/17 02:41 09/19/17 02:41 Lab Results, Last 24 hours 09/19/17 09/19/17 02:41 02:41 WBC 16.5 H Hgb 11.5 D Hct 34.7 L Plt Count 255 Sodium 136 Potassium 3.5 Chloride 106 Carbon Dioxide 24 BUN 13 Creatinine 0.61 Glucose 180 H Calcium 9.2 Consult Discharge Plan - Plan Referrals: NONE,PCP [Primary Care Provider] - Bina Song [Family Provider] -
--- NOTE | 2017-09-19 09:58 | Cardiology Progress Note ---
Date of Encounter: 09/19/17 Time of Encounter: 09:56 Assessment and Plan (1) CAD in pauma artery Current Visit: Yes Status: Acute [place] CAD, presentation with non-ST segment elevation myocardial infarction. Multivessel CAD noted at time of catheterization. Reportedly, discussion between speech pathologist assistant and surgeon took place. Given ongoing chest discomfort and active MD, decision made to perform PCI to the culprit vessel - BHAVANA x1 to RCA. Residual significant disease in the LAD and circumflex arteries remains. Cardiomyopathy per LV gram. Surgery recommendations noted. Recommendation for outpatient stress test in 1 month and revascularization if needed. Given multivessel disease, there is risk of false negative stress test. In addition, patient appears to have a significant cardiomyopathy, which would benefit from complete revascularization. Currently, patient is chest pain -free. Recommend continue current medical therapy, including aspirin, Plavix, atorvastatin therapy. Start low-dose beta kyle. Consider BHUMI inhibitor. TTE pending. Further recommendations to follow. (2) NSTEMI (non-ST elevated myocardial infarction) Current Visit: Yes Status: Acute Elevated troponins improved chest pain but continues to describe 1/10 chest pain. Likely Inferior impending stuttering Inferior ST ischemia, R/B/A d/w patient and she agrees to proceed. Discussion w patient/family: The assessment and plan as outlined above was discussed with the patient and/or family members who expressed understanding and agreement. All questions were answered. Thank you for involving us in the care of your patient. Please call with any questions. Subjective Principal diagnosis: NSTEMI Interval history: Patient seen and examined. This is my first encounter with her. No new events overnight. Blood pressure remained stable. Results of LHC noted, EF 35%. PCI performed to mid portion with BHAVANA x1. Residual significant CAD involving the mid LAD and proximal circumflex. Objective Vital Signs, Last 4 Hours Temp Pulse Resp BP Pulse Ox 09/19/17 07:10 98.9 F 77 15 127/64 100 General: Conversant, No Apparent Distress HEENT: Atraumatic, Normocephaly, Mucus Membranes Moist Neck: No JVD, Normal carotid pulses Cardiac: Reg Rate and Rhythm, Normal S1 and S2, No Murmur Lungs: Normal Breath Sounds, No Wheeze, Rales, Rhonchi Neuro: Alert and responsive, No focal deficits noted Abdomen: Soft, Non-Tender Skin: No rashes noted on visualized skin Musculoskeletal: No Chest Wall Tenderness Extremities: No Clubbing, No Cyanosis, No Edema Results 09/19/17 02:41 09/19/17 02:41 Lab Results 09/19/17 09/19/17 02:41 02:41 WBC 16.5 H Hgb 11.5 D Hct 34.7 L Plt Count 255 Sodium 136 Potassium 3.5 Chloride 106 Carbon Dioxide 24 BUN 13 Creatinine 0.61 Glucose 180 H Calcium 9.2 - Imaging and Cardiology Echo: pending Cardiac cath: report reviewed Consult Discharge Plan - Plan Referrals: NONE,PCP [Primary Care Provider] - Bina Song [Family Provider] -
[2017-09-20] MEDS: Aspirin 81 MG TAB.CHEW PO SCH (07:19)
[2017-09-20] MEDS: Metoprolol XL (24 HR) Succ 25 MG TAB.ER.24H PO SCH (07:19)
--- NOTE | 2017-09-20 09:29 | Cardiothoracic Progress Note ---
Date of Encounter: 09/20/17 Time of Encounter: 09:27 - Assessment and plan (1) NSTEMI (non-ST elevated myocardial infarction) Current Visit: Yes Status: Acute Echocardiogram revealed an ejection fraction of 40-45% and no significant valvular disease. 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 I discussed possible bypass surgery with the patient. The procedure, its risks, and benefits were explained and she does wish to proceed. She has no questions. I would favor waiting 3-4 weeks to allow the infarct to heal. I agree with discharge tomorrow. I should see her in the office in approximately 3 weeks to set up the surgery. We would need to discontinue the Plavix prior to the OR. - Subjective Interval history: The patient has had no chest pain and no angina. Vital Signs, Last 4 Hours Temp Pulse Resp BP Pulse Ox 09/20/17 07:21 98.3 F 83 16 111/50 98 Weight 09/18/17 09/19/17 09/20/17 23:59 23:59 23:59 Weight 71.1 kg 69.2 kg 70 kg Lungs are clear to percussion and auscultation. Heart is in a normal sinus rhythm. - Labs 09/19/17 02:41 09/19/17 02:41 Consult Discharge Plan - Plan Referrals: NONE,PCP [Primary Care Provider] - Bina Song [Family Provider] -
--- NOTE | 2017-09-20 10:51 | Cardiology Progress Note ---
Date of Encounter: 09/20/17 Time of Encounter: 10:49 Assessment and Plan (1) CAD in [place] artery Current Visit: Yes Status: Acute STEMI s/p PCI to RCA. LVEF 40-45%, basal to mid inferior hypokinesis. Residual significant disease in the LAD and circumflex territories. Surgery has been recommended. Plan to let the patient recover, follow-up with surgery as outpatient. Continue dual antiplatelet therapy for now. Lasix will be discontinued prior to surgery. Continue statin and beta kyle. Plan for likely discharge tomorrow. (2) NSTEMI (non-ST elevated myocardial infarction) Current Visit: Yes Status: Acute Discussion w patient/family: The assessment and plan as outlined above was discussed with the patient and/or family members who expressed understanding and agreement. All questions were answered. Thank you for involving us in the care of your patient. Please call with any questions. Subjective Principal diagnosis: NSTEMI Interval history: No new events. No chest discomfort reported. TTE reviewed, LVEF 40-45%. Basal to mid inferior hypokinesis noted. Other segments demonstrate normal segmental function. Objective Vital Signs, Last 4 Hours Temp Pulse Resp BP Pulse Ox 09/20/17 07:21 98.3 F 83 16 111/50 98 General: Conversant, No Apparent Distress HEENT: Atraumatic, Normocephaly, Mucus Membranes Moist Neck: No JVD, Normal carotid pulses Cardiac: Reg Rate and Rhythm, Normal S1 and S2, No Murmur Lungs: Normal Breath Sounds, No Wheeze, Rales, Rhonchi Neuro: Alert and responsive, No focal deficits noted Abdomen: Soft, Non-Tender Skin: No rashes noted on visualized skin Musculoskeletal: No Chest Wall Tenderness Extremities: No Clubbing, No Cyanosis, No Edema Results 09/19/17 02:41 09/19/17 02:41 - Imaging and Cardiology Echo: report reviewed Cardiac cath: report reviewed Consult Discharge Plan - Plan Referrals: NONE,PCP [Primary Care Provider] - Bina Song [Family Provider] -
--- NOTE | 2017-09-21 08:36 | Cardiothoracic Progress Note ---
Date of Encounter: 09/21/17 Time of Encounter: 08:33 - Assessment and plan (1) NSTEMI (non-ST elevated myocardial infarction) Current Visit: Yes Status: Acute The patient is due to be discharged today. She does have triple-vessel disease with decreased ventricular function and open heart surgery is recommended. I discussed possible bypass surgery with the patient and her family. The patient seems somewhat reluctant. All their questions were answered. I will see her in the office in 3 weeks and rediscuss. If they are agreeable, we will schedule open heart surgery shortly thereafter. - Subjective Interval history: The patient has had no angina and no chest pain. Vital Signs, Last 4 Hours Temp Pulse Resp BP Pulse Ox 09/21/17 08:04 80 09/21/17 07:54 98.1 F 80 18 126/59 96 Weight 09/19/17 09/20/17 09/21/17 23:59 23:59 23:59 Weight 70.3 kg Lungs are clear to percussion and auscultation. Heart is in a normal sinus rhythm. - Labs 09/19/17 02:41 09/19/17 02:41 - VTE Documentation of Mechanical Device: Graduated compression elastic hosiery Consult Discharge Plan - Plan Referrals: NONE,PCP [Primary Care Provider] - Bina Song [Family Provider] -
[2017-09-21] MEDS: Aspirin 81 MG TAB.CHEW PO SCH (09:14)
[2017-09-21] MEDS: Metoprolol XL (24 HR) Succ 25 MG TAB.ER.24H PO SCH (09:14)
--- NOTE | 2017-09-21 10:27 | Discharge Summary ---
Date of Encounter: 09/21/17 Time of Encounter: 10:20 - Discharge Diagnosis (1) NSTEMI (non-ST elevated myocardial infarction) Priority: Primary Status: Acute Comments: Presented with non-STEMI with troponin 7.75. (2) CAD in [place] artery Priority: Primary Status: Acute Comments: Underwent emergent left heart catheterization with PCI to RCA and recommendations for CT surgery evaluation for LAD and circumflex. - Hospital Course Hospital course: Ms. Chavez is a 67 year old female presented with non-STEMI with troponin 7.75. EF noted show 40-45% and no significant valvular disease. Patient underwent urgent left heart catheterization with PTCA/drug-eluting stent to mid RCA 90% lesion. Has remaining mid LAD 70% lesion, proximal circumflex 80% lesion, proximal RCA 60% lesion, distal RCA 50% lesions. Seen by CT surgery and being evaluated in outpatient setting for bypass of remaining LAD and circumflex lesions. Will follow up with CT surgery in the next few weeks for further discussion and evaluation for bypass. Prepping for discharge home today in stable condition. On beta kyle, aspirin, Plavix, statin. Nitroglycerin prescription provided and shocks and somehow utilizing an call 911. Post procedure and [place] care/education provided. All questions answered. Had mild leukocytosis, suspect reflexive, afebrile. - Time Spent with Patient Total time spent providing and/or coordinating discharge services: Less than 30 minutes - Discharge Medications Prescriptions: Atorvastatin [Lipitor] 40 mg PO HS #30 tablet Clopidogrel [Plavix] 75 mg PO DAILY #30 tablet Metoprolol XL (24 HR) Succ [Toprol Xl] 25 mg PO DAILY #30 tab.er.24h Nitroglycerin 0.4 mg SL PRN PRN #30 tab.subl PRN Reason: Chest Pain Home Medications: Calcium Carbonate [Calcium] 500 mg PO DAILY 09/18/17 [History] DiphenhydraMINE [Benadryl] 25 mg PO Q6HR PRN 09/18/17 [History] [place]-3/Dha/Epa/Fish Oil [Fish Oil 1,000 mg Softgel] 1 tab PO DAILY 09/18/17 [ History] Ranitidine HCl [Zantac 75] 75 mg PO DAILY 09/18/17 [History] Aspirin 81 mg PO DAILY tab.chew 09/21/17 [Rx] Atorvastatin [Lipitor] 40 mg PO HS #30 tablet 09/21/17 [Rx] Clopidogrel [Plavix] 75 mg PO DAILY #30 tablet 09/21/17 [Rx] Metoprolol XL (24 HR) Succ [Toprol Xl] 25 mg PO DAILY #30 tab.er.24h 09/21/17 [ Rx] Nitroglycerin 0.4 mg SL PRN PRN #30 tab.subl 09/21/17 [Rx] Allergies/Adverse Reactions: 3 Allergy/AdvReac Type Severity Reaction Status Date / Time No Known Allergies Allergy Verified 09/18/17 13:21 Date of admission: 09/20/17 10:55 Primary care physician: PCP NONE Consults: CT surgery Discharging clinician: Cole Robison Anticipated date of discharge: 09/21/17 Physical Examination Vital Signs, Last 4 Hours Temp Pulse Resp BP Pulse Ox 09/21/17 08:04 80 09/21/17 07:54 98.1 F 80 18 126/59 96 09/21/17 07:30 90 General: Conversant, No Apparent Distress HEENT: Atraumatic, Normocephaly, Mucus Membranes Moist Neck: No JVD, Normal carotid pulses Cardiac: Reg Rate and Rhythm, Normal S1 and S2, No Murmur Lungs: Normal Breath Sounds, No Wheeze, Rales, Rhonchi Neuro: Alert and responsive, No focal deficits noted Abdomen: Soft, Non-Tender Skin: No rashes noted on visualized skin, Other (Right groin site with mild to moderate ecchymosis, no bleeding, right PT and DP pulses 2+ palpable) Musculoskeletal: No Chest Wall Tenderness Extremities: No Clubbing, No Cyanosis, No Edema, Normal Pulses - Patient Status Disposition: Home, Self-Care Condition: Fair Functional capacity at discharge: independent ambulation Overall status at discharge: patient is progressing back to baseline - Discharge Instructions Follow Up With: Areli Ryan [employer]PER[employer] [Advanced Practice Nurse] - 09/25/17 9:30 am (Please so up @ 0900 to fill out paper work. Please take your Picture ID, Insurance cards and a list of all medications with you to the doctors office. Take along your discharge paper work and discharge instructions. If you need to cancel please call within 24 hours of your appointment at [phone].) Juan Manuel Luciano MD [Partnered Physician] - 10/15/17 1:15 pm - Diet and Activity Activity: other (Avoid strenuous activity and exercise) Diet: low fat, low cholesterol, low salt diet - VTE Documentation of Mechanical Device: Graduated compression elastic hosiery
[2017-09-21 11:01] VITALS: BP 131/77
--- NOTE | 2017-09-22 05:19 | Electrocardiograph Report ---
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
--- NOTE | 2017-09-22 05:19 | Electrocardiograph Report ---
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
== END 2017-09-21 11:48 | disposition home or self-care (01) | DRG 247 ==
LOC: EMEROO 12:27 → 2NENU 12:27 → EMEROO 13:55 → 2NNU 18:04
PROVIDERS: ADMIT Family Medicine; ATTEND Family Medicine